=== PATIENT | female | born 2000 | race African-American/Black ===

== ENCOUNTER 2020-08-27 19:49 | Emergency (ER) | payer OTHER ==
[2020-08-27] MEDS ORDERED: ONDANSETRON 4 MG (ODT) TAB ONE (21:00)
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
[2020-08-27 22:03] VITALS: TEMP 98.7
[2020-08-27 22:10] VITALS: BP 102/62; O2SAT 100
== END 2020-08-27 21:45 | disposition home or self-care (01) ==
LOC: ER 19:49
DX: Z71.1 Person with feared health complaint in whom no diagnosis is made (principal)
CPT/HCPCS: 71045; 99283